=== PATIENT | female | born 1930 | race African-American/Black ===

== ENCOUNTER 2020-05-29 00:05 | Inpatient (IN) | payer MEDICARE, MEDICAID, OTHER ==
--- NOTE | 2020-05-29 02:26 | PDOC.EVN ---
Event Note - Event Note Event Note: [id number] HP
[2020-05-29] MEDS ORDERED: Sodium Chloride 0.9% 1,000 ML IV SCH (02:30)
[2020-05-29] MEDS ORDERED: Azithromycin 500 MG in Sodium Chloride 0.9% 250 ML 250 ML IVPB SCH (02:30)
[2020-05-29] MEDS ORDERED: Furosemide 40 MG/4 ML VIAL SLOW IVP SCH (02:45)
[2020-05-29 03:01] LABS: CKMB 1.7 ng/mL (0-6.6)
[2020-05-29 03:26] VITALS: BMI 23.1
--- NOTE | 2020-05-29 03:48 | HP ---
CHIEF COMPLAINT: Altered mental status and lightheadedness. HISTORY OF PRESENT ILLNESS: Ms. Saucedo is an 89-year-old female with past medical history of hypertension, coronary artery disease, congestive heart failure, among others, presents to [facility] with lightheadedness and altered mental status after she accidentally took two doses of her daily medications today. Her medications include clonidine, Bystolic, Plavix, atorvastatin, Lasix, BiDil, and [place]. In the emergency room, the patient was bradycardic with heart rate in the low 50s. The patient also was found to be in acute renal failure with a creatinine of 2.6, baseline creatinine is about 1.8. She had a detectable troponin of 0.06. Requested to transfer the patient to our medical facility for further management. Currently, the patient is awake, alert, able to answer simple questions. No complaints. EKG showed sinus bradycardia. The patient was given IV fluids. The patient is being admitted to hospital for further management. PAST MEDICAL HISTORY: 1. Coronary artery disease. 2. Hypertension. 3. Congestive heart failure. PAST SURGICAL HISTORY: Coronary artery bypass graft surgery. SOCIAL HISTORY: No history of smoking, alcohol drinking, or drug abuse. FAMILY HISTORY: Reviewed and noncontributory. HOME MEDICATIONS: As mentioned above in the history of present illness. See home medication reconciliation form for updated medications. ALLERGIES: NO KNOWN ALLERGIES. REVIEW OF SYSTEMS: Review of 14 systems negative except what is mentioned in history of present illness. PHYSICAL EXAMINATION: GENERAL: The patient is awake, alert, does not appear to be in acute distress. VITAL SIGNS: Blood pressure is 177/75, pulse is 59, respiratory rate is 18, temperature is 98, and oxygen saturation 99% on room air. HEAD AND NECK: Normocephalic and atraumatic. Neck is supple. CHEST: Fair bilateral air entry. HEART: S1 and S2, regular, bradycardic. ABDOMEN: Soft, nontender. Bowel sounds present. NEUROLOGIC: Awake, alert, and moving extremities. PSYCH: Unable to assess. EXTREMITIES: No clubbing. No cyanosis. LABORATORY DATA: As mentioned above in history of present illness. ASSESSMENT: 1. Accidental medication overdose. The patient took accidentally extra dose of her early medications, which includes clonidine, Bystolic, Lasix, and Plavix. 2. Acute renal failure/acute kidney injury. 3. Congestive heart failure, chronic. 4. Hypertension. 5. Coronary artery disease. 6. Detectable troponin. PLAN: 1. Admit. 2. Telemetry monitoring. 3. Serial troponins. 4. Hold Lasix tonight, hold clonidine and Bystolic. 5. Cautious IV fluid hydration. 6. Monitor kidney function and urine output. 7. Reconcile home medications. 8. DVT prophylaxis as appropriate. 9. Expected length of stay at least 1 midnight if the patient is stable and shows significant clinical improvement. Job ID: [id number]
[2020-05-29] MEDS: Sodium Chloride 0.9% 1,000 ML IV SCH ×2 (04:24→20:35)
[2020-05-29 05:16] LABS: Anion Gap 13 mmol/L (10-20); BUN (Urea Nitrogen) 34 mg/dL (9.8-20.1); Carbon Dioxide 23 mmol/L (23-31); Chloride 108 mmol/L (98-107); Potassium 4.7 mmol/L (3.5-5.1); Sodium 139 mmol/L (136-145)
[2020-05-29 05:17] LABS: Calc. Creatinine Clearance 16 mL/min (70-130); Calcium 8.4 mg/dL (7.8-10.44); Estimated GFR-MDRD 27; Glucose 90 mg/dL (83-110)
[2020-05-29 05:20] LABS: Troponin I 0.068 ng/mL (< 0.028)
[2020-05-29 05:56] LABS: Eosinophils 2 % (0-10); Hemoglobin 10.5 g/dL (12.0-16.0); Hypochromia SLIGHT = 6-15 cells (100X) (0-5/hpf); Lymphocytes 60 % (21-51); MDiff Complete? YES; Mean Corpuscular HGB CONC 31.4 g/dL (32.0-36.0); Mean Corpuscular Hemoglobin 29.9 pg (27.0-31.0); Mean Corpuscular Volume 95.2 fL (78.0-98.0); Metamyelocyte 2 % (0-0); Monocytes 10 % (0-10); Neutrophil 26 % (42-75); Platelet Count 125 thou/uL (130-400); Platelet Morphology Comment Appears Adequate; RBC Distribution Width 13.6 % (11.5-14.5); Red Blood Cell (RBC) Count 3.51 mill/uL (4.20-5.40); White Blood Cell (WBC) Count 2.8 thou/uL (4.8-10.8)
[2020-05-29 07:42] LABS: Troponin I 0.091 ng/mL (< 0.028)
[2020-05-29] MEDS ORDERED: hydrALAZINE 20 MG/ML VIAL SLOW IVP PRN (08:31)
--- NOTE | 2020-05-29 08:36 | PDOC.EVN ---
Event Note - Event Note Event Note: Patient with acute renal failure, severe hypertension this AM. Will need to keep overnight one more midnight for further IV fluids, adjusting BP meds, and will need to get PT/OT evaluation. Will change to inpatient status.
[2020-05-29] MEDS ORDERED: Aspirin Chewable 81 MG TAB PO SCH (09:00)
[2020-05-29] MEDS ORDERED: ISOSORB DINIT PO SCH (09:00)
[2020-05-29] MEDS ORDERED: HYDRALAZINE HCL PO SCH (09:00)
[2020-05-29] MEDS ORDERED: Cefepime 1 GM in Sodium Chloride 0.9% 100 ML IVPB SCH (09:00)
[2020-05-29] MEDS ORDERED: Heparin 5,000 UNITS/ML VIAL SC SCH (09:00)
[2020-05-29] MEDS: cloNIDine 0.2 MG TAB PO SCH ×2 (09:19→20:33)
[2020-05-29] MEDS: Clopidogrel Bisulfate 75 MG TAB PO SCH (09:19)
[2020-05-29 11:19] LABS: SARS-CoV-2 MS2 Positive; SARS-CoV-2 N Gene Negative; SARS-CoV-2 S Gene Negative; SARS-CoV-2 by NAA Not Detected (NotDetected); SARS-CoV-2 orf1ab Negative
[2020-05-29] MEDS: hydrALAZINE 25 MG TAB PO SCH ×2 (15:20→20:34)
[2020-05-29] MEDS: Isosorbide Dinitrate 20 MG TAB PO SCH ×2 (15:21→20:34)
[2020-05-29 18:45] LABS: Bilirubin Negative (Negative); Blood, Urine Negative (Negative); Clarity Clear (Clear); Glucose, Urine (Dipstick) Normal (Negative); Ketone, Urine Negative (Negative); Leukocyte Negative Leu/uL (Negative); Nitrite Negative (Negative); Protein, Urine (Dipstick) Negative (Neg-Trace); Specific Gravity, Urine 1.012 (1.002-1.036); Urobilinogen Normal mg/dL (Less than 2); pH, Urine 5.5 (5.0-9.0)
[2020-05-29] MEDS ORDERED: FLU VACC QS2020-21(65YR UP)/PF 240 MCG/0.7 ML SYRINGE IM ONE (21:00)
[2020-05-29] MEDS ORDERED: Atorvastatin Calcium 20 MG TAB PO SCH (21:00)
[2020-05-30 03:29] LABS: #Monocytes 0.5 thou/uL (0.11-0.59); #Neutrophils 1.8 thou/uL (1.40-6.50); %Basophils 0.7 % (0.0-1.0); %Eosinophils 1.2 % (0.0-10.0); %Lymphocytes 30.5 % (21.0-51.0); %Monocytes 13.3 % (0.0-10.0); %Neutrophils 54.3 % (42.0-75.0); Mean Corpuscular HGB CONC 31.6 g/dL (32.0-36.0); Mean Corpuscular Hemoglobin 30.2 pg (27.0-31.0); Mean Corpuscular Volume 95.8 fL (78.0-98.0); Mean Platelet Volume 9.9 fL (7.4-10.4); Platelet Count 130 thou/uL (130-400); RBC Distribution Width 13.4 % (11.5-14.5); White Blood Cell (WBC) Count 3.4 thou/uL (4.8-10.8)
[2020-05-30 04:02] LABS: Anion Gap 10 mmol/L (10-20); BUN (Urea Nitrogen) 33 mg/dL (9.8-20.1); Calc. Creatinine Clearance 27 mL/min (70-130); Calcium 8.1 mg/dL (7.8-10.44); Carbon Dioxide 23 mmol/L (23-31); Chloride 111 mmol/L (98-107); Estimated GFR-MDRD 47; Glucose 100 mg/dL (83-110); Potassium 4.3 mmol/L (3.5-5.1); Sodium 140 mmol/L (136-145)
[2020-05-30] MEDS ORDERED: Sodium Chloride 0.9% 1,000 ML IV SCH (07:45)
[2020-05-30 09:01] VITALS: TEMP 98
[2020-05-30] MEDS: cloNIDine 0.2 MG TAB PO SCH (09:05)
[2020-05-30] MEDS: Clopidogrel Bisulfate 75 MG TAB PO SCH (09:05)
[2020-05-30] MEDS: hydrALAZINE 25 MG TAB PO SCH (09:05)
[2020-05-30] MEDS: Isosorbide Dinitrate 20 MG TAB PO SCH (09:08)
[2020-05-30 12:07] VITALS: BP 111/53
--- NOTE | 2020-05-30 16:44 | DIS ---
DATE OF ADMISSION: 05/29/2020 DATE OF DISCHARGE: 05/30/2020 DISCHARGE DISPOSITION: Home. PRIMARY DISCHARGE DIAGNOSES: Accidental overdose on clonidine and Bystolic, resolved and acute kidney injury. SECONDARY DISCHARGE DIAGNOSES: History of coronary artery disease, hypertension, history of congestive heart failure, likely suspected early dementia. PROCEDURES DONE DURING HOSPITALIZATION: H and H 10 and 31, platelet count 130, white count of 3.4, MCV is 95. BUN 33, creatinine 1.3 on the day of discharge, had a BUN of 37, creatinine of 2.6 on the day of admission with BNP of 101. COVID-19 PCR was not detected on 05/29/2020. DISCHARGE MEDICATIONS: 1. Clonidine 0.2 mg p.o. twice daily. 2. Lipitor 20 mg p.o. daily. 3. Trandolapril 2 mg p.o. daily. 4. Nebivolol 20 mg p.o. daily. 5. Plavix 75 mg p.o. daily. 6. BiDil 20/37.5 mg p.o. 3 times daily. ALLERGIES: NO KNOWN DRUG ALLERGIES. DISCHARGE PLAN: The patient to follow up with primary care physician in 1 week, her nurse practitioner, Ms. Lady Egan. She also needs to have a followup appointment with Dr. Colin in 2 to 4 weeks. The patient has been advised to check blood pressure and pulse twice daily for a period of 10 days to follow up with her primary care physician for changes in her medication. BRIEF COURSE DURING HOSPITALIZATION: The patient initially was brought to emergency room for altered mental state and dizziness. The patient had accidentally taken her clonidine and Bystolic twice on the morning of admission. She had mild bradycardia with heart rates in the 50s. The patient was also found to have acute kidney injury with creatinine around 2.6. She was gently hydrated during her stay and was closely monitored on telemetry. The patient has not had any bradyarrhythmias. Prior to discharge, she is ambulating and eating well. I have given complete updates to the patient and her grand daughter at bedside. She is hemodynamically stable and will be shortly discharged home. Please note, her spironolactone was discontinued at the time of discharge. Please note, I have seen and examined the patient on the day of discharge. Job ID: [id number]
== END 2020-05-30 13:20 | disposition home or self-care (01) | DRG 918 ==
LOC: ERS 00:05 → 2NO 02:11 → OBSVTOIN 08:35
PROVIDERS: ADMIT Internal Medicine; ATTEND Internal Medicine
DX: T46.5X1A Poisoning by other antihypertensive drugs, accidental (unintentional), initial encounter (principal); N17.9 Acute kidney failure, unspecified; T44.7X1A Poisoning by beta-adrenoreceptor antagonists, accidental (unintentional), initial encounter; T50.1X1A Poisoning by loop [high-ceiling] diuretics, accidental (unintentional), initial encounter; T45.521A Poisoning by antithrombotic drugs, accidental (unintentional), initial encounter; Z20.828 Contact with and (suspected) exposure to other viral communicable diseases; I11.0 Hypertensive heart disease with heart failure; I50.9 Heart failure, unspecified; I25.10 Atherosclerotic heart disease of native coronary artery without angina pectoris; R00.1 Bradycardia, unspecified; Z23 Encounter for immunization; Z95.1 Presence of aortocoronary bypass graft; Z79.899 Other long term (current) drug therapy
CPT/HCPCS: 36415; 80048; 81003; 82553; 84484; 85025; 87635; 99285; G0378; U0003